=== PATIENT | female | born 1970 | race Two or more races ===

== ENCOUNTER 2017-08-28 11:58 | Emergency (ER) | payer MEDICAID, MEDICARE, OTHER ==
[~2017-08-28] VITALS: Ht 154.9 cm; Wt 53.0 kg
[2017-08-28] MEDS ORDERED: METHYLPREDNISOLONE SOD SUCC 125 MG/2 ML VIAL IV ONE (13:15)
[2017-08-28 15:28] VITALS: BP 135/96
== END 2017-08-28 15:30 | disposition home or self-care (01) ==
LOC: ER 12:16
DX: T78.40XA Allergy, unspecified, initial encounter (principal); I10 Essential (primary) hypertension; F12.10 Cannabis abuse, uncomplicated; X58.XXXA Exposure to other specified factors, initial encounter
CPT/HCPCS: 96374; 99284; J2930

== ENCOUNTER 2020-06-13 10:38 | Emergency (ER) | payer MEDICARE ==
[~2020-06-13] VITALS: Ht 152.4 cm; Wt 53.0 kg
[2020-06-13] MEDS ORDERED: ASPIRIN 81MG TABLET PO ONE (11:45)
[2020-06-13] MEDS ORDERED: METHYLPREDNISOLONE SOD SUCC 125 MG/2 ML VIAL IV STA (11:46)
[2020-06-13] MEDS ORDERED: IPRATROPIUM BROMIDE (0.02%) 0.5MG/2.5ML NEB HHN STA (11:46)
[2020-06-13] MEDS ORDERED: ALBUTEROL (0.083%) 2.5MG/3ML NEB HHN STA (11:46)
[2020-06-13 11:51] LABS: BASOPHILS % 0.9 % (0.0-2.0); EOSINOPHILS % 6.4 % (0.0-5.0); HEMATOCRIT. 45.7 % (36.0-48.0); HEMOGLOBIN. 15.4 g/dL (12.0-16.0); MEAN CORPUSCULAR HEMOGLOBIN 31.7 pg (28.0-32.0); MEAN CORPUSCULAR VOLUME 93.8 fL (81.0-99.0); MEAN PLATELET VOLUME 8.3 fl (7.4-10.4); MONOCYTES % 4.1 % (2.0-8.0); NEUTROPHILS % 66.6 % (40.0-76.0); PLATELET 226 x1000/uL (130-400); RED BLOOD CELL COUNT 4.87 mill/uL (4.2-5.4); RED CELL DISTRIBUTION WIDTH 13.3 % (11.6-14.6)
[2020-06-13 12:42] LABS: CHLORIDE 111 mEq/L (98-107)
[2020-06-13 14:14] LABS: CHLORIDE 112 mEq/L (98-107)
[2020-06-13] MEDS ORDERED: P50 MT (15:08)
[2020-06-13] MEDS ORDERED: AZIT250T12 MT (15:08)
[2020-06-13] MEDS ORDERED: ALBU6.7H9 INH (15:08)
[2020-06-13 15:30] VITALS: BP 160/80
== END 2020-06-13 16:50 | disposition left against medical advice (07) ==
LOC: ER 10:38 → EDBEDREQTM 12:10 → CANBEDREQ 15:44 → ER 16:50
DX: J20.9 Acute bronchitis, unspecified (principal); R07.89 Other chest pain; I10 Essential (primary) hypertension; Z87.891 Personal history of nicotine dependence; Z98.890 Other specified postprocedural states
CPT/HCPCS: 36415; 71045; 80048; 80053; 81025; 83690; 83880; 84484; 85025; 93005; 94640; 96374; 99285; J2930; Z7610

== ENCOUNTER 2020-08-16 23:11 | Emergency (ER) | payer MEDICARE ==
[~2020-08-16] VITALS: Ht 152.4 cm; Wt 54.0 kg
[~2020-08-16 23:11] MED LIST: ALBU6.7H9 INH; AZIT250T12 MT; P50 MT
[2020-08-16] MEDS ORDERED: IPRATROPIUM BROMIDE (0.02%) 0.5MG/2.5ML NEB HHN STA (23:51)
[2020-08-16] MEDS ORDERED: METHYLPREDNISOLONE SOD SUCC 125 MG/2 ML VIAL IV STA (23:51)
[2020-08-17 00:29] LABS: HEMATOCRIT. 46.2 % (36.0-48.0); HEMOGLOBIN. 15.9 g/dL (12.0-16.0); MEAN CORPUSCULAR HEMOGLOBIN 31.8 pg (28.0-32.0); MEAN CORPUSCULAR VOLUME 92.3 fL (81.0-99.0); MEAN PLATELET VOLUME 9.1 fl (7.4-10.4); PLATELET 268 x1000/uL (130-400)
[2020-08-17 00:38] LABS: CHLORIDE 105 mEq/L (98-107); HCG SCREEN NEGATIVE
[2020-08-17 00:43] LABS: C REACTIVE PROTEIN QUANT 0.7 mg/L (0.0-3.0)
[2020-08-17 00:45] LABS: CREATINE KINASE 209 IU/L (26-192)
[2020-08-17 00:47] LABS: CLARITY URINE CLOUDY (CLEAR); COLOR URINE YELLOW (YELLOW); KETONES URINE NEGATIVE (NEGATIVE); LEUKOCYTE ESTERASE URINE 3+ (NEGATIVE); NITRITE URINE NEGATIVE (NEGATIVE); OCCULT BLOOD URINE TRACE (NEGATIVE); PROTEIN URINE NEGATIVE (NEGATIVE); SPECIFIC GRAVITY URINE 1.016 (1.005-1.030); UROBILINOGEN URINE 0.2 E.U./dL (0.2-1.0)
[2020-08-17 00:56] LABS: *AMPHETAMINES SCREEN URINE NEGATIVE (NEGATIVE); *BARBITURATES SCREEN URINE NEGATIVE (NEGATIVE); CANNABINOID URINE SCREEN NEGATIVE (NEGATIVE); METHADONE URINE SCREEN NEGATIVE (NEGATIVE); OPIATES URINE SCREEN NEGATIVE (NEGATIVE); PHENCYCLIDINE URINE SCREEN NEGATIVE (NEGATIVE)
[2020-08-17 00:57] LABS: *BENZODIAZEPINES SCREEN URINE NEGATIVE (NEGATIVE); *COCAINE SCREEN URINE NEGATIVE (NEGATIVE)
[2020-08-17] MEDS: ALBUTEROL (0.083%) 2.5MG/3ML NEB HHN SCH ×3 (01:18→02:08)
[2020-08-17 01:21] LABS: PROTHROMBIN TIME 10.6 sec (9.6-11.0)
[2020-08-17 01:29] LABS: BG BASE EXCESS 0.1 mmol/L (-2.0-2.0); BG CARBOXYHEMOGLOBIN 0.7 % (0.5-1.5); BG DEOXYHEMOGLOBIN 5.3 % (0.0-5.0); BG FRACTION INSPIRED OXYGEN 21; BG HCO3 ACT 24.1 mmol/L (22.0-26.0); BG METHEMOGLOBIN 0.2 % (0.0-1.5); BG OXYGEN SATURATION 94.7 % (92.0-98.5); BG OXYHEMOGLOBIN 93.8 % (94.0-97.0); BG PCO2 37.3 mmHg (35.0-45.0); BG PH 7.428 (7.350-7.450); BG PO2 71.5 mmHg (75.0-100.0); BG SAMPLE SITE RIGHT RADIAL; BG TOTAL HEMOGLOBIN 14.8 g/dL (12.0-18.0); BG VENT MODE ROOM AIR
[2020-08-17 01:37] LABS: PLATELET ESTIMATE NORMAL
[2020-08-17] MEDS ORDERED: MAGNESIUM 1 G PREMIX 100 ML IV NR (03:00)
[2020-08-17] MEDS ORDERED: ALBUTEROL (0.083%) 2.5MG/3ML NEB HHN STA (03:39)
[2020-08-17 08:58] VITALS: BP 121/71
== END 2020-08-17 09:33 | disposition short-term general hospital (02) ==
LOC: ER 23:11 → CANBEDREQ 08-17 09:16 → ER 08-17 09:33
DX: J45.901 Unspecified asthma with (acute) exacerbation (principal); D72.829 Elevated white blood cell count, unspecified; I10 Essential (primary) hypertension; Z87.891 Personal history of nicotine dependence; Z20.822 Contact with and (suspected) exposure to COVID-19
CPT/HCPCS: 36415; 36600; 71045; 80053; 80305; 81003; 82375; 82550; 82728; 82805; 83605; 83615; 83690; 84145; 84484; 84703; 85025; 85384; 85610; 86140; 87040; 87086; 93005; 94640; 96365; 96375; 99285; J2930; J3475; Z7610

== ENCOUNTER 2021-02-28 03:50 | Emergency (ER) | payer MEDICARE ==
[~2021-02-28] VITALS: Ht 152.4 cm; Wt 54.4 kg
[2021-02-28] MEDS ORDERED: IPRATROPIUM BROMIDE (0.02%) 0.5MG/2.5ML NEB HHN STA (04:30)
[2021-02-28] MEDS ORDERED: PREDNISONE 20MG TABLET PO STA (04:30)
[2021-02-28] MEDS ORDERED: ALBUTEROL (0.083%) 2.5MG/3ML NEB HHN STA (04:30)
[2021-02-28] MEDS ORDERED: ALBU6.7H9 INH (05:54)
[2021-02-28] MEDS ORDERED: P20 MT (05:54)
[2021-02-28 06:20] VITALS: BP 146/89
== END 2021-02-28 06:41 | disposition home or self-care (01) ==
LOC: ER 03:50
DX: J45.909 Unspecified asthma, uncomplicated (principal); R06.2 Wheezing; I10 Essential (primary) hypertension; Z79.899 Other long term (current) drug therapy
CPT/HCPCS: 94640; 99283; J7512; Z7610

== ENCOUNTER 2023-04-26 17:55 | Emergency (ER) | payer MEDICAID, MEDICARE ==
[~2023-04-26] VITALS: Ht 160 cm; Wt 55.0 kg
[~2023-04-26 17:55] MED LIST changes: +ALBU6.7H3 INH; -ALBU6.7H9 INH; +P20 MT
[2023-04-26 18:03] VITALS: BP 127/93; TEMP 98.5
[2023-04-26 19:18] LABS: BASOPHILS % 0.7 % (0.0-2.0); HEMATOCRIT. 45.2 % (36.0-48.0); HEMOGLOBIN. 15.1 g/dL (12.0-16.0); LYMPHOCYTES % 20.3 % (20.0-50.0); MEAN CORPUSCULAR HEMOGLOBIN 32.2 pg (28.0-32.0); MEAN CORPUSCULAR HGB CONC 33.3 g/dL (31.0-37.0); MEAN CORPUSCULAR VOLUME 96.7 fL (81.0-99.0); MEAN PLATELET VOLUME 8.5 fl (7.4-10.4); MONOCYTES % 5.3 % (2.0-8.0); NEUTROPHILS % 64.7 % (40.0-76.0); PLATELET 250 x1000/uL (130-400); RED BLOOD CELL COUNT 4.68 mill/uL (4.2-5.4); RED CELL DISTRIBUTION WIDTH 13.3 % (11.6-14.6); WHITE BLOOD COUNT 12.4 x1000/uL (4.5-11.0)
[2023-04-26 19:37] LABS: INR 1.1; PROTHROMBIN TIME 11.4 sec (9.6-11.0)
[2023-04-26 19:38] LABS: ALANINE AMINOTRANSFERASE 11 IU/L (10-49); ALBUMIN 4.6 g/dL (3.2-4.8); ASPARTATE AMINOTRANSFERASE 22 IU/L (<34); BILIRUBIN TOTAL 0.6 mg/dL (0.1-1.0); CALCIUM 10.2 mg/dL (8.7-10.4); CARBON DIOXIDE 24 mEq/L (21-32); CHLORIDE 107 mEq/L (98-107); CREATININE 0.8 mg/dL (0.6-1.0); GLUCOSE 137 mg/dL (70-105); POTASSIUM 3.7 mEq/L (3.5-5.1); PROTEIN TOTAL 7.8 g/dL (6.0-8.3); SODIUM 141 mEq/L (136-145); TROPONIN I HIGH SENSITIVITY 11 ng/L (3.0-34); UREA NITROGEN BLOOD 8 mg/dL (9-23)
[2023-04-26 21:58] LABS: CLARITY URINE CLOUDY (CLEAR); COLOR URINE DARK YELLOW (YELLOW); GLUCOSE URINE NEGATIVE (NEGATIVE); KETONES URINE 2+ (NEGATIVE); LEUKOCYTE ESTERASE URINE TRACE (NEGATIVE); NITRITE URINE NEGATIVE (NEGATIVE); OCCULT BLOOD URINE NEGATIVE (NEGATIVE); PROTEIN URINE 1+ (NEGATIVE); SPECIFIC GRAVITY URINE 1.028 (1.005-1.030); UROBILINOGEN URINE 0.2 E.U./dL (0.2-1.0)
[2023-04-26 22:23] LABS: BACTERIA URINE 2+; RBC URINE 0-2 /hpf (0-2); SQUAMOUS EPITHELIAL CELL URINE 1+ /lpf (RARE/1+)
[2023-04-26 22:24] LABS: CALCIUM OXALATE CRYSTALS URINE 1+ /lpf
[2023-04-26] MEDS ORDERED: IPRATROPIUM BROMIDE (0.02%) 0.5MG/2.5ML NEB HHN STA (23:36)
[2023-04-26] MEDS ORDERED: ALBUTEROL (0.083%) 2.5MG/3ML NEB HHN STA (23:36)
[2023-04-26] MEDS ORDERED: PREDNISONE 20MG TABLET PO STA (23:36)
[2023-04-26 23:58] VITALS: PULSE 126; RESP 22; O2SAT 95
[2023-04-27] MEDS ORDERED: ALBU6.7H15 INH (01:01)
[2023-04-27] MEDS ORDERED: P20 MT (01:01)
== END 2023-04-27 01:50 | disposition home or self-care (01) ==
LOC: ER 17:55
DX: J45.901 Unspecified asthma with (acute) exacerbation (principal); I10 Essential (primary) hypertension; Z79.899 Other long term (current) drug therapy
CPT/HCPCS: 80053; 81003; 85025; 85610; 84484; 36415; 71045; 93005; 94644; 99285; Z7610 ×3; J7512

== ENCOUNTER 2024-01-09 10:25 | Emergency (ER) | payer MEDICAID ==
[~2024-01-09] VITALS: Ht 154.9 cm; Wt 49.9 kg
[~2024-01-09 10:25] MED LIST changes: +ALBU6.7H15 INH; -ALBU6.7H3 INH; +ATOR10TA PO; -AZIT250T12 MT; +DILT30TA37 PO; +FAMO20TA8 MT; +FLUT1DIS2 INH; +IPRA3AMP9 HHN; +NEBU-248 MC; -P50 MT
[2024-01-09] MEDS ORDERED: METHYLPREDNISOLONE SOD SUCC 125MG/2ML (ACT-O-VIAL) IM STA (10:54)
[2024-01-09] MEDS ORDERED: MAGNESIUM 1 G PREMIX 100 ML IV ONE (11:00)
[2024-01-09] MEDS: ALBUTEROL (0.083%) 2.5MG/3ML NEB HHN STA ×2 (11:10→13:22)
[2024-01-09] MEDS: IPRATROPIUM BROMIDE (0.02%) 0.5MG/2.5ML NEB HHN ONE (11:18)
[2024-01-09 11:19] VITALS: PULSE 135; RESP 18; O2SAT 93
[2024-01-09] MEDS: METHYLPREDNISOLONE SOD SUCC 125MG/2ML (ACT-O-VIAL) IV STA (11:34)
[2024-01-09 11:44] LABS: HEMATOCRIT. 41.7 % (36.0-48.0); HEMOGLOBIN. 14.4 g/dL (12.0-16.0); MEAN CORPUSCULAR HEMOGLOBIN 32.7 pg (28.0-32.0); MEAN CORPUSCULAR HGB CONC 34.5 g/dL (31.0-37.0); MEAN CORPUSCULAR VOLUME 94.6 fL (81.0-99.0); PLATELET 215 x1000/uL (130-400); RED BLOOD CELL COUNT 4.41 mill/uL (4.2-5.4); RED CELL DISTRIBUTION WIDTH 12.8 % (11.6-14.6); WHITE BLOOD COUNT 9.4 x1000/uL (4.5-11.0)
[2024-01-09 11:47] LABS: DIFFERENTIAL COMMENT 1
[2024-01-09 11:51] LABS: CHLORIDE 108 mEq/L (98-107); POTASSIUM 3.9 mEq/L (3.5-5.1); SODIUM 141 mEq/L (136-145)
[2024-01-09 11:52] LABS: CARBON DIOXIDE 25 mEq/L (21-32)
[2024-01-09 11:53] LABS: CALCIUM 9.6 mg/dL (8.7-10.4)
[2024-01-09 11:57] LABS: CREATININE 0.8 mg/dL (0.6-1.0); GLUCOSE 108 mg/dL (70-105)
[2024-01-09 11:58] LABS: UREA NITROGEN BLOOD 8 mg/dL (9-23)
[2024-01-09 11:59] LABS: TROPONIN I HIGH SENSITIVITY 7 ng/L (3.0-34)
[2024-01-09 13:22] VITALS: PULSE 107; RESP 18; O2SAT 94
[2024-01-09] MEDS: IPRATROPIUM BROMIDE (0.02%) 0.5MG/2.5ML NEB HHN STA (13:22)
[2024-01-09 14:40] VITALS: BP 151/88; PULSE 90; RESP 18; TEMP 37.11408; O2SAT 94
[2024-01-09] MEDS ORDERED: P50 PO (14:52)
[2024-01-09 15:19] LABS: PLATELET ESTIMATE NORMAL
[2024-01-17] MEDS ORDERED: METH4TAB95 MT (09:00)
== END 2024-01-09 14:44 | disposition left against medical advice (07) ==
LOC: ER 10:46 → EDBEDREQ 11:12 → ER 14:44
DX: J45.901 Unspecified asthma with (acute) exacerbation (principal); Z79.899 Other long term (current) drug therapy
CPT/HCPCS: 80048; 83880; 85025; 84484; 36415; 71045; 94640; 96374; 99284; J3475; J2919; Z7610 ×5